=== PATIENT | male | born 1960 | race Caucasian/White ===

== ENCOUNTER → 2017-10-11 | Outpatient (CLI) | payer OTHER | END | disposition home or self-care (01) | LOC: PCVCIMAG 15:06 | DX: I25.10 Atherosclerotic heart disease of native coronary artery without angina pectoris (principal); I10 Essential (primary) hypertension; E78.5 Hyperlipidemia, unspecified; E83.59 Other disorders of calcium metabolism; R06.00 Dyspnea, unspecified | CPT/HCPCS: 93325; 93351 ==

== ENCOUNTER → 2018-11-25 | Outpatient (CLI) | payer OTHER ==
--- NOTE | 2018-11-25 17:20 | PCVCIMAG ---
APPROVED REPORT Study performed: 11/25/2018 15:56:09 Exam: Stress Echocardiogram Indication: Chest Pressure, CAD, Hyperlipidemia Patient Location: Echo lab Stress Nurse: Katie Burns RN, Radha Cabrales RN Room #: 2 Status: routine Ht: 5 ft 10 in HR: 56 bpm BP: 106/64 mmHg Rhythm: NSR Procedure The patient underwent an Exercise Stress Test using the Jono Protocol. Blood pressure, heart rate, and EKG were monitored. An Echocardiogram was performed by automation engineering technician in four stages in quad fashion. At peak stress, four selected images were obtained and placed side by side with resting images for comparison. Stress Test Details Stress Test: Exercise stress testing was performed using a Jono protocol. HR Resting HR: 56 bpmMax Heart Rate (APMHR): 163 bpm Max HR Achieved: 162 bpmTarget HR (85% APMHR): 138 bpm % of APMHR: 99 Recovery HR: 80 bpm HR response to stress: Normal HR response to stress BP Resting BP: 106/64 mmHg Max BP: 168/64 mmHg Recovery BP: 110/68 mmHg BP response to stress: Normal blood pressure response to stress. ECG Resting ECG: Sinus Rhythm Stress ECG: Sinus Rhythm Recovery ECG: Sinus Rhythm Clinical Reason for Termination: Maximal effort Exercise duration: 15 min 00 sec Highest Stage Achieved: Stage 5: 5.0 mph at 18% grade. Exercise capacity: 17.50 METs Overall Exercise Capacity for Age: Excellent Stress ECG Conclusion ECG: Non-ischemic Clinical: Non-ischemic Pre-Stress Echo The resting Echocardiogram showed normal left ventricular contractility with an estimated Ejection Fraction of about >55%. Normal wall motion in all segments on baseline images. Post-Stress Echo The stress Echocardiogram showed normal left ventricular contractility with an estimated Ejection Fraction of about 65-70%. Normal augmentation of wall motion in all segments on post stress images. Clinical No clinical or ECG evidence for ischemia. Conclusion Clinical Response: Non-ischemic Exercise Capacity: Superior Stress ECG Response: Non-ischemic Stress Echo Images: Non-ischemic The left ventricle is normal in size and wall thickness in both the rest and stress images. Other Information Study Quality: Good <Conclusion> The left ventricle is normal in size and wall thickness in both the rest and stress images.
== END | disposition home or self-care (01) ==
LOC: PCVCIMAG 15:04
PROVIDERS: ATTEND Internal Medicine Cardiovascular Disease
DX: I25.10 Atherosclerotic heart disease of native coronary artery without angina pectoris (principal); E78.5 Hyperlipidemia, unspecified; R07.89 Other chest pain
CPT/HCPCS: 93325; 93351